=== PATIENT | male | born 1945 | race Caucasian/White ===

== ENCOUNTER 2019-05-15 19:37 | Emergency (ER) | payer MEDICARE, BC ==
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
[2019-05-15] MEDS ORDERED: Bacitracin/Neomycin/Polymyxin B Oint 0.9 GM U/D Packet ONE (20:12)
[2019-05-15] MEDS ORDERED: Bacitracin/Neomycin/Polymyxin B Oint 0.9 GM U/D Packet TOP ONE (20:14)
[2019-05-15] MEDS ORDERED: Diphtheria,Pertussis(Acell),Tetanus Vaccine 0.5 ML SDV IM ONE (20:19)
== END 2019-05-15 21:05 | disposition home or self-care (01) ==
LOC: KA.ED 19:37
DX: S01.01XA Laceration without foreign body of scalp, initial encounter (principal); Z23 Encounter for immunization; W10.9XXA Fall (on) (from) unspecified stairs and steps, initial encounter
CPT/HCPCS: 12002; 90471; 90715; 99283

== ENCOUNTER 2020-03-26 16:30 | Emergency (ER) | payer MEDICARE, BC ==
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
--- NOTE | 2020-03-26 17:16 | CR ---
[id number] RAD/RAD Ribs Tyron 4V W PA Chest EXAM: RAD Ribs Tyron 4V W PA Chest INDICATION: INJURY,PAIN IN RIGHT UPPER CHEST/RIBS. COMPARISON: Chest radiograph November 09, 2011. FINDINGS: Multiple right rib fractures appear likely chronic, but were unfortunately not included in the [id number] of the last examination. No definite acute rib fracture or other osseous abnormality is seen. The lungs are hypoinflated. No pneumothorax or pleural fluid. Borderline heart size without evidence of pulmonary edema. IMPRESSION: 1. Chronic appearing right rib fractures. No definite acute fracture. 2. Low lung volumes. Cleveladn Espinosa MD 03/26/20 [id number] Thank you for allowing us to participate in the care of your patient.
== END 2020-03-26 17:45 | disposition home or self-care (01) ==
LOC: KA.ED 16:30
DX: S61.412A Laceration without foreign body of left hand, initial encounter (principal); S61.411A Laceration without foreign body of right hand, initial encounter; S20.211A Contusion of right front wall of thorax, initial encounter; I10 Essential (primary) hypertension; E78.00 Pure hypercholesterolemia, unspecified; Z79.899 Other long term (current) drug therapy; V87.8XXA Person injured in other specified noncollision transport accidents involving motor vehicle (traffic), initial encounter
CPT/HCPCS: 71111-RT; 99283; 99284-25

== ENCOUNTER 2021-04-27 18:42 | Emergency (ER) | payer MEDICARE, BC ==
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
--- NOTE | 2021-04-27 19:32 | CT ---
[id number] CT/CT Head WO IV EXAM: CT Head WO IV CLINICAL DATA: HEADACHE COMPARISON: CORRELATION IS MADE WITH DECEMBER 31, 2012 FINDINGS: Minimal hyperdensity adjacent to the left central sulcus is seen on image 42, series 2 This is stable since the last exam on image 23, series 2 This therefore is likely a cavernous hemangioma A similar larger finding is seen in the vestibular area of the leanna on the left This is identified on image 23, series 2 This is stable since the last exam This was previously present on image 12, series 2 There is no mass or mass effect. There is no hemorrhage or hydrocephalus. There are no extra-axial fluid collections. There are no sites of abnormal attenuation. 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
== END 2021-04-27 19:50 | disposition home or self-care (01) ==
LOC: KA.ED 18:42
DX: R51.9 Headache, unspecified (principal); E78.00 Pure hypercholesterolemia, unspecified; I10 Essential (primary) hypertension; J44.9 Chronic obstructive pulmonary disease, unspecified; E11.9 Type 2 diabetes mellitus without complications; E66.9 Obesity, unspecified; Z91.013 Allergy to seafood; Z91.048 Other nonmedicinal substance allergy status; Z68.30 Body mass index [BMI] 30.0-30.9, adult
CPT/HCPCS: 70450; 99283; 99284-25

== ENCOUNTER 2021-05-10 16:39 | Emergency (ER) | payer MEDICARE, BC ==
[2021-05-10] MEDS ORDERED: Sodium Chloride 0.9% 10 ML Syringe FLUSH PRN (17:14)
--- NOTE | 2021-05-10 17:25 | CR ---
[id number] RAD/RAD Chest PA or AP 1V EXAM: RAD Chest PA or AP 1V INDICATION: NEAR SYNCOPE. COMPARISON: None. DISCUSSION: Cardiomediastinal silhouette is normal in size and contour. No infiltrate, effusion, pneumothorax, or edema. IMPRESSION: No acute cardiopulmonary abnormality. Antolin Goddard DO 05/10/21 [id number] Thank you for allowing us to participate in the care of your patient.
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
[2021-05-10 18:35] LABS: ANION GAP 13.4 mmol/L (5-15); CHLORIDE,CL 99 mmol/L (98-107); SODIUM,NA 136 mmol/L (136-145)
== END 2021-05-10 18:50 | disposition home or self-care (01) ==
LOC: KA.ED 16:39
DX: R55 Syncope and collapse (principal); I10 Essential (primary) hypertension; E78.00 Pure hypercholesterolemia, unspecified; J44.9 Chronic obstructive pulmonary disease, unspecified; E11.9 Type 2 diabetes mellitus without complications; E66.9 Obesity, unspecified; Z68.30 Body mass index [BMI] 30.0-30.9, adult; Z91.013 Allergy to seafood; Z91.048 Other nonmedicinal substance allergy status; Z79.899 Other long term (current) drug therapy
CPT/HCPCS: 36415; 71045; 80053; 82550; 82553; 83880; 84484; 85025; 93005; 99284; 99284-25

== ENCOUNTER 2023-05-26 09:27 | Emergency (ER) | payer MEDICARE, BC ==
[2023-05-26] MEDS ORDERED: Lidocaine/Epineph/Tetracaine 3 ML Syringe TOP ONE (09:34)
[2023-05-26] MEDS ORDERED: Lidocaine/Epineph/Tetracaine 3 ML Syringe ONE (09:35)
[2023-05-26] MEDS ORDERED: Bacitracin/Neomycin/Polymyxin B Oint 0.9 GM U/D Packet TOP ONE (09:39)
== END 2023-05-26 09:57 | disposition home or self-care (01) ==
LOC: KA.ED 09:27
DX: S01.01XA Laceration without foreign body of scalp, initial encounter (principal); S50.311A Abrasion of right elbow, initial encounter; E78.00 Pure hypercholesterolemia, unspecified; I10 Essential (primary) hypertension; J45.909 Unspecified asthma, uncomplicated; N40.0 Benign prostatic hyperplasia without lower urinary tract symptoms; E11.9 Type 2 diabetes mellitus without complications; E66.9 Obesity, unspecified; Z68.31 Body mass index [BMI] 31.0-31.9, adult; Z79.899 Other long term (current) drug therapy; Z91.013 Allergy to seafood; Z91.048 Other nonmedicinal substance allergy status; W01.0XXA Fall on same level from slipping, tripping and stumbling without subsequent striking against object, initial encounter
CPT/HCPCS: 12001; 99282; 99284; A9270-GY

== ENCOUNTER 2023-11-27 20:23 | Emergency (ER) | payer OTHER | END 2023-11-27 22:05 | disposition home or self-care (01) | LOC: SUPCPDRO 20:23 → KA.ED 20:23 | DX: S82.65XA Nondisplaced fracture of lateral malleolus of left fibula, initial encounter for closed fracture (principal); S99.912A Unspecified injury of left ankle, initial encounter; I10 Essential (primary) hypertension; E78.00 Pure hypercholesterolemia, unspecified; J44.9 Chronic obstructive pulmonary disease, unspecified; E11.9 Type 2 diabetes mellitus without complications; Z91.013 Allergy to seafood; Z91.048 Other nonmedicinal substance allergy status; W00.0XXA Fall on same level due to ice and snow, initial encounter; Z79.899 Other long term (current) drug therapy | CPT/HCPCS: 73610-LT; 99283 ==